=== PATIENT | female | born 1980 | race African-American/Black ===

== ENCOUNTER 2016-12-23 16:23 | Emergency (ER) | payer OTHER ==
[~2016-12-23] VITALS: Ht 157.5 cm; Wt 89.8 kg
--- NOTE | 2016-12-23 16:40 | NUR ---
pt bib self c/o cp x1 wk, pressure like radiating to L axilla 8/10, with nonproductive cough x3 wks. skin warm nondiaphoretic. resp even unlabored. NAD noted. in er bed 09 on monitor.
[2016-12-23] MEDS ORDERED: ASPIRIN 81 MG TAB.CHEW PO ONE (17:00)
[2016-12-23] MEDS ORDERED: KETOROLAC TROMETHAMINE INJ 60 MG/2 ML VIAL IM ONE (17:00)
[2016-12-23] MEDS ORDERED: ASPIRIN 81 MG TAB.CHEW ONE (17:01)
[2016-12-23] MEDS ORDERED: KETOROLAC TROMETHAMINE INJ 30 MG/ML VIAL ONE (17:01)
--- NOTE | 2016-12-23 17:02 | NUR ---
per dr pruett, no iv access necessary
[2016-12-23 17:03] LABS: BASOPHILS % (AUTO) 0.3 % (0.0-2.0); EOSINOPHILS # (AUTO) 0.3 /CMM (0.0-0.7); EOSINOPHILS % (AUTO) 3.9 % (0.0-6.0); HEMATOCRIT 37 % (33-45); HEMOGLOBIN 12.6 g/dL (11.5-14.8); LYMPHOCYTES # (AUTO) 2.1 /CMM (0.8-4.8); LYMPHOCYTES % (AUTO) 26.6 % (20.0-44.0); MEAN CORPUSCULAR HEMOGLOBIN 31 PG (26.0-33.0); MEAN CORPUSCULAR HGB CONC 34 g/dl (31.0-36.0); MEAN CORPUSCULAR VOLUME 92 fL (82-100); MONOCYTES # (AUTO) 0.6 /CMM (0.1-1.30); MONOCYTES % (AUTO) 8.2 % (2.0-12.0); NEUTROPHILS # (AUTO) 4.8 /CMM (1.8-8.9); PLATELET COUNT (AUTO) 288 /CMM (150-450); RDW COEFFICIENT OF VARIATION 13.2 (11.5-15.0); RED BLOOD CELL COUNT(AUTO) 4.05 MIL/uL (4.0-5.2); WHITE BLOOD COUNT (AUTO) 7.8 K/uL (4.3-11.0)
[2016-12-23 17:13] LABS: CALCIUM, SERUM 8.1 mg/dL (8.5-10.1); CARBON DIOXIDE 24 mmol/L (21-32); CHLORIDE 105 mmol/L (98-107); CREATININE 0.7 mg/dL (0.6-1.3); GFR 115 mL/min (>60); GLUCOSE 125 mg/dL (74-106); POTASSIUM 3.6 mmol/L (3.5-5.1); SODIUM SERUM 136 mmol/L (136-145); UREA NITROGEN, BLOOD 10 mg/dL (7-18)
[2016-12-23 17:19] LABS: ALANINE AMINOTRANSFERASE 26 U/L (12-78); ALKALINE PHOSPHATASE 78 U/L (46-116); ASPARTATE AMINOTRANSFERASE 23 U/L (15-37); BILIRUBIN,DIRECT 0.1 mg/dL (0.0-0.2); BILIRUBIN,TOTAL 0.2 mg/dL (0.2-1.0); TOTAL PROTEIN, SERUM 6.5 g/dL (6.4-8.2)
[2016-12-23 17:20] LABS: TROPONIN I < 0.017 ng/mL (0.00-0.056)
[2016-12-23 17:53] LABS: D-DIMER 0.31 mg/L(FEU (0.17-0.50); INR 0.96 (0.87-1.13); PROTHROMBIN TIME 10.3 SECS (9.5-12.7)
--- NOTE | 2016-12-23 19:03 | NUR ---
pt reports that she feels much better, no chest pain or axilla pain and headache is significantly decreased. md notified.
--- NOTE | 2016-12-23 19:09 | NUR ---
radiology called for chest xray
--- NOTE | 2016-12-23 19:38 | NUR ---
Patient discharged to home in stable condition. Written and verbal after care instructions given. Patient verbalizes understanding of instruction. ambulatory with steady gait.
[2016-12-23 19:39] VITALS: BP 82/133
== END 2016-12-23 19:41 | disposition home or self-care (01) ==
LOC: ER 16:24
DX: R07.89 Other chest pain (principal); M06.9 Rheumatoid arthritis, unspecified; F17.200 Nicotine dependence, unspecified, uncomplicated
CPT/HCPCS: 36415; 71010; 80048; 80076; 83690; 84484; 84703; 85025; 85378; 85730; 93005; 96372; 99285; A4606; J1885; Z7610

== ENCOUNTER 2017-01-06 11:59 | Emergency (ER) | payer OTHER ==
[~2017-01-06] VITALS: Ht 175.3 cm; Wt 108.9 kg
[2017-01-06] MEDS ORDERED: SILVER SULFADIAZINE CREAM 25 GM TUBE ONE (12:00)
[2017-01-06 12:11] VITALS: BP 140/71
[2017-01-06] MEDS ORDERED: HYDROCODONE/APAP 5/325MG 1 EACH TABLET ONE (12:14)
[2017-01-06] MEDS ORDERED: HYDROCODONE/APAP 5/325MG 1 EACH TABLET PO ONE (12:30)
== END 2017-01-06 12:53 | disposition home or self-care (01) ==
LOC: EDUNIT# 11:59 → ER 12:00
DX: T23.251A Burn of second degree of right palm, initial encounter (principal); F17.200 Nicotine dependence, unspecified, uncomplicated; X19.XXXA Contact with other heat and hot substances, initial encounter; Y93.89 Activity, other specified; Y92.89 Other specified places as the place of occurrence of the external cause; Y99.9 Unspecified external cause status
CPT/HCPCS: A4606; Z7610

== ENCOUNTER 2017-03-15 00:02 | Emergency (ER) | payer OTHER ==
[~2017-03-15] VITALS: Ht 165.1 cm; Wt 79.4 kg
--- NOTE | 2017-03-15 00:25 | NUR ---
PT BIBSELF, AMBULATORY TO ER BED 9 C/O "CHEST PAIN SINCE SUNDAY RADIATING FROM THE BACK TO CHEST" PT AOX4 RR EVEN AND UNLABORED. NO SOB NOTED. NAD NOTED. NO NVD AT THIS TIME. PT NOT DIAPHORETIC. PT GOWNED AND PLACED ON MONITOR WAITING FOR MD MATIAS.
--- NOTE | 2017-03-15 00:26 | NUR ---
PT NOTED ANXIOUS.
--- NOTE | 2017-03-15 00:31 | NUR ---
XRAY AT BEDSIDE
--- NOTE | 2017-03-15 00:39 | NUR ---
DR. JAVIER AT BEDSIDE FOR EVAL.
[2017-03-15] MEDS ORDERED: MAG HYDROX/AL HYDROX/SIMETH 30 ML UDC ONE (00:49)
[2017-03-15] MEDS ORDERED: LIDOCAINE VISCOUS 2% UD 15 ML UDC ONE (00:49)
[2017-03-15] MEDS ORDERED: LIDOCAINE VISCOUS 2% UD 15 ML UDC MM ONE (01:00)
[2017-03-15] MEDS ORDERED: MAG HYDROX/AL HYDROX/SIMETH 30 ML UDC PO ONE (01:00)
--- NOTE | 2017-03-15 01:30 | NUR ---
DR. JAVIER AWARE OF PT BP. PT ASYMPTOMATIC
--- NOTE | 2017-03-15 01:34 | NUR ---
Patient discharged to home in stable condition. Written and verbal after care instructions given. Patient verbalizes understanding of instruction. ambulatory with a steady gait.
[2017-03-15 01:35] VITALS: BP 182/111
== END 2017-03-15 01:38 | disposition home or self-care (01) ==
LOC: ER 00:05
DX: K21.9 Gastro-esophageal reflux disease without esophagitis (principal); F41.9 Anxiety disorder, unspecified; F17.200 Nicotine dependence, unspecified, uncomplicated; M06.9 Rheumatoid arthritis, unspecified; Z88.6 Allergy status to analgesic agent
CPT/HCPCS: 71010; 93005; 99284; A4606; Z7610

== ENCOUNTER 2017-03-26 16:38 | Emergency (ER) | payer OTHER ==
[~2017-03-26] VITALS: Ht 157.5 cm; Wt 94.3 kg
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
--- NOTE | 2017-03-26 17:10 | NUR ---
IV ACCESS STARTED. BLOOD DRAWN FOR LABS.
[2017-03-26 17:12] LABS: BASOPHILS # (AUTO) 0.1 /CMM (0.0-0.2); BASOPHILS % (AUTO) 1.2 % (0.0-2.0); EOSINOPHILS # (AUTO) 0.8 /CMM (0.0-0.7); EOSINOPHILS % (AUTO) 7.3 % (0.0-6.0); HEMATOCRIT 39 % (33-45); HEMOGLOBIN 12.9 g/dL (11.5-14.8); LYMPHOCYTES # (AUTO) 2.5 /CMM (0.8-4.8); LYMPHOCYTES % (AUTO) 22.9 % (20.0-44.0); MEAN CORPUSCULAR HEMOGLOBIN 31 PG (26.0-33.0); MEAN CORPUSCULAR HGB CONC 33 g/dl (31.0-36.0); MEAN CORPUSCULAR VOLUME 94 fL (82-100); MONOCYTES # (AUTO) 0.8 /CMM (0.1-1.30); MONOCYTES % (AUTO) 7.4 % (2.0-12.0); NEUTROPHILS # (AUTO) 6.8 /CMM (1.8-8.9); NEUTROPHILS % (AUTO) 61.2 % (43.0-81.0); PLATELET COUNT (AUTO) 381 /CMM (150-450); RDW COEFFICIENT OF VARIATION 12.5 (11.5-15.0); RED BLOOD CELL COUNT(AUTO) 4.18 MIL/uL (4.0-5.2); WHITE BLOOD COUNT (AUTO) 10.9 K/uL (4.3-11.0)
[2017-03-26 17:20] LABS: APPEARANCE,URINE Slightly Cloudy (CLEAR); BILIRUBIN,URINE Negative (NEGATIVE); BLOOD, URINE Large Ery/uL (NEGATIVE); COLOR,URINE Dark (YELLOW); KETONES,URINE Negative (NEGATIVE); LEUKOCYTE ESTERASE ,URINE Moderate (NEGATIVE); NITRITE, URINE Negative (NEGATIVE); PROTEIN,URINE 30 mg/dl (NEGATIVE); UGLUCOSE Negative (NEGATIVE); UROBILINOGEN,URINE 0.2 EU/dL (0.2)
[2017-03-26 17:22] LABS: PREGNANCY TEST URINE QUAL NEGATIVE (NEGATIVE)
[2017-03-26] MEDS ORDERED: IV NS 0.9% 250 ML IV ONE (17:23)
[2017-03-26] MEDS ORDERED: IOHEXOL-350 100 ML VIAL IV ONE (17:24)
[2017-03-26 17:29] LABS: TROPONIN I < 0.017 ng/mL (0.00-0.056)
[2017-03-26 17:32] LABS: CALCIUM, SERUM 8.5 mg/dL (8.5-10.1); CARBON DIOXIDE 26 mmol/L (21-32); CHLORIDE 108 mmol/L (98-107); CREATININE 0.9 mg/dL (0.6-1.3); GLUCOSE 106 mg/dL (74-106); POTASSIUM 3.9 mmol/L (3.5-5.1); SODIUM SERUM 141 mmol/L (136-145); UREA NITROGEN, BLOOD 15 mg/dL (7-18)
[2017-03-26 17:44] LABS: B-TYPE NATRIURETIC PEPTIDE 131 PG/ML (0-125)
[2017-03-26] MEDS ORDERED: ONDANSETRON HCL/PF 4 MG/2 ML VIAL ONE (17:57)
[2017-03-26] MEDS ORDERED: KETOROLAC TROMETHAMINE INJ 30 MG/ML VIAL ONE (18:02)
[2017-03-26 18:13] LABS: RBC,URINE TOO NUMEROUS TO COUN /HPF (0-2)
[2017-03-26 18:14] LABS: BACTERIA,URINE Few /HPF (None Seen); SQUAMOUS EPITHELIAL CELL,UR Moderate /HPF (None Seen); URINE AMORPHOUS URATE Moderate /HPF (None Seen); WBC,URINE 21-50 /HPF (0-3)
[2017-03-26 18:30] LABS: INR 1.06 (0.87-1.13)
[2017-03-26] MEDS ORDERED: KETOROLAC TROMETHAMINE INJ 30 MG/ML VIAL IV ONE (18:30)
[2017-03-26] MEDS ORDERED: ONDANSETRON HCL/PF 4 MG/2 ML VIAL IV ONE (18:30)
--- NOTE | 2017-03-26 18:35 | NUR ---
IV removed. Catheter intact and site benign. Pressure and 4x4 applied to site. No bleeding noted.
--- NOTE | 2017-03-26 18:40 | NUR ---
Patient discharged to home in stable condition. Written and verbal after care instructions given. Patient verbalizes understanding of instruction.
[2017-03-26 18:42] VITALS: BP 145/88
[2017-03-26 19:43] LABS: D-DIMER 0.36 mg/L(FEU (0.17-0.50)
== END 2017-03-26 18:44 | disposition home or self-care (01) ==
LOC: ER 16:39
DX: R07.89 Other chest pain (principal); F41.9 Anxiety disorder, unspecified; R82.99 Other abnormal findings in urine; M06.9 Rheumatoid arthritis, unspecified; F17.200 Nicotine dependence, unspecified, uncomplicated; Z88.5 Allergy status to narcotic agent
CPT/HCPCS: 36415; 71010; 71275; 80048; 81001; 83880; 84484; 84703; 85025; 85378; 85730; 87086; 93005; 96374; 96375; 99285; A4606; J1885; J2405; J7050; Q9967; Z7610; 81000-TC

== ENCOUNTER 2017-09-26 03:36 | Emergency (ER) | payer OTHER ==
[~2017-09-26] VITALS: Ht 157.5 cm; Wt 88.9 kg
[2017-09-26] MEDS ORDERED: LORAZEPAM 1 MG TABLET PO ONE (04:00)
--- NOTE | 2017-09-26 04:10 | NUR ---
PT CAME FROM HOME WITH C/O DISSYNESS AND L ANNIKA CHEST PAIN X 6 HOURS NON RADIATING, PT A/O X 4, BREATHING EVEN/UNLABORED, NSR ON CARDIAC MONIOTR, SKIN WARM/DRY/INTACT, GAIT STEADYM NO N/V
[2017-09-26] MEDS ORDERED: LORAZEPAM 1 MG TABLET ONE (04:20)
[2017-09-26 04:46] LABS: BASOPHILS % (AUTO) 0.5 % (0.0-2.0); EOSINOPHILS # (AUTO) 0.4 /CMM (0.0-0.7); EOSINOPHILS % (AUTO) 4.9 % (0.0-6.0); HEMATOCRIT 38 % (33-45); HEMOGLOBIN 13.1 g/dL (11.5-14.8); LYMPHOCYTES # (AUTO) 3.1 /CMM (0.8-4.8); LYMPHOCYTES % (AUTO) 39.9 % (20.0-44.0); MEAN CORPUSCULAR HEMOGLOBIN 32 PG (26.0-33.0); MEAN CORPUSCULAR HGB CONC 34 g/dl (31.0-36.0); MEAN CORPUSCULAR VOLUME 94 fL (82-100); MONOCYTES # (AUTO) 0.7 /CMM (0.1-1.30); MONOCYTES % (AUTO) 8.9 % (2.0-12.0); NEUTROPHILS # (AUTO) 3.6 /CMM (1.8-8.9); NEUTROPHILS % (AUTO) 45.8 % (43.0-81.0); PLATELET COUNT (AUTO) 328 /CMM (150-450); RDW COEFFICIENT OF VARIATION 13.4 (11.5-15.0); WHITE BLOOD COUNT (AUTO) 7.8 K/uL (4.3-11.0)
[2017-09-26 04:58] LABS: CALCIUM, SERUM 8.5 mg/dL (8.5-10.1); CARBON DIOXIDE 27 mmol/L (21-32); CHLORIDE 103 mmol/L (98-107); CREATININE 0.6 mg/dL (0.6-1.3); GLUCOSE 101 mg/dL (74-106); POTASSIUM 3.5 mmol/L (3.5-5.1); SODIUM SERUM 139 mmol/L (136-145); UREA NITROGEN, BLOOD 13 mg/dL (7-18)
[2017-09-26 04:59] LABS: INR 0.96 (0.87-1.13)
[2017-09-26 05:05] LABS: TROPONIN I < 0.017 ng/mL (0.00-0.056)
--- NOTE | 2017-09-26 05:19 | NUR ---
PT LAYING IN BED, BREATHING EVEN/UNLABORED, NAD NOTED, WAITING ON LAB RESULTS
[2017-09-26 05:36] VITALS: BP 150/91
== END 2017-09-26 05:36 | disposition home or self-care (01) ==
LOC: ER 03:38
DX: R42 Dizziness and giddiness (principal); F41.9 Anxiety disorder, unspecified; M06.9 Rheumatoid arthritis, unspecified; M32.9 Systemic lupus erythematosus, unspecified; F10.10 Alcohol abuse, uncomplicated; F17.200 Nicotine dependence, unspecified, uncomplicated; Z88.5 Allergy status to narcotic agent; Z88.6 Allergy status to analgesic agent
CPT/HCPCS: 36415; 80048; 84484; 84703; 85025; 85730; 93005 ×2; 99285; A4606; J7030; Z7610